=== PATIENT | female | born 2000 | race Caucasian/White ===

== ENCOUNTER 2021-08-31 16:05 | Emergency (ER) | payer BC ==
[2021-08-31 16:10] VITALS: BP 122/82; PULSE 102; TEMP 98; BMI 43.2
[2021-08-31] MEDS ORDERED: ONDANSETRON 4 MG/2 ML VIAL IVPUSH ONE (17:00)
[2021-08-31] MEDS ORDERED: SODIUM CHLORIDE 1,000 ML IV STA (17:00)
[2021-08-31] MEDS ORDERED: ONDANSETRON 4 MG/2 ML VIAL ONE (17:11)
[2021-08-31 17:56] LABS: HEMOGLOBIN 14.3 GM/dL (10.7-15.3); MCH 27.8 pg (25.7-33.7); MEAN CELL VOLUME 81.9 fl (80-96); MEAN PLT VOLUME 6.8 fl (7.5-11.1); PLATELET COUNT 483 10^3/uL (134-434); RBC 5.13 M/mm3 (3.60-5.2); RDW 14.1 % (11.6-15.6); WHITE BLOOD COUNT 11.9 K/mm3 (4.0-10.0)
[2021-08-31 18:16] LABS: BLOOD UREA NITROGEN 13.9 mg/dL (7-18)
[2021-08-31 18:17] LABS: ALBUMIN 4.3 g/dl (3.4-5.0)
[2021-08-31 18:19] LABS: CREATININE 0.9 mg/dL (0.55-1.3)
[2021-08-31 18:20] LABS: BILIRUBIN,TOTAL 0.8 mg/dL (0.2-1); TOT PROT 8.5 g/dl (6.4-8.2)
[2021-08-31 18:47] LABS: EPI CELLS 18 /uL (0-25.1); HYALINE CASTS 2 /uL (0-3.1); PH,URINE 8.5 (5.0-8.0); URINE APPEARANCE CLEAR; URINE BACTERIA 514 /uL (0-1359); URINE BILIRUBIN NEGATIVE (NEGATIVE); URINE COLOR YELLOW; URINE GLUCOSE (UA) NEGATIVE (NEGATIVE); URINE KETONE NEGATIVE (NEGATIVE); URINE LEUK ESTERASE 1+ (NEGATIVE); URINE NITRITE NEGATIVE (NEGATIVE); URINE PROTEIN NEGATIVE (NEGATIVE); URINE WBC 12 /uL (0-25.8)
[2021-08-31 19:09] LABS: ANISOCYTOSIS 0; MACROCYTOSIS 0
== END 2021-08-31 19:46 | disposition home or self-care (01) ==
LOC: JER 16:05
PROC: 3E033GC Introduction of Other Therapeutic Substance into Peripheral Vein, Percutaneous Approach (ICD-10-PCS; principal; 2021-08-31)
DX: K52.9 Noninfective gastroenteritis and colitis, unspecified (principal)
CPT/HCPCS: 36415; 80053; 81003; 83690; 85025; 87086; 99284-25